=== PATIENT | male | born 1945 | race Two or more races ===

== ENCOUNTER 2016-04-29 01:13 | Emergency (ER) | payer OTHER, MEDICAID ==
[~2016-04-29] VITALS: Ht 177.8 cm; Wt 76.7 kg
[~2016-04-29 01:13] MED LIST: LISI-275 PO; METF-312 PO; PANT40TA2 PO; THIA100T30 PO
[2016-04-29] MEDS ORDERED: PANTOPRAZOLE SODIUM 40 MG/10 ML VIAL IV ONE (02:00)
[2016-04-29] MEDS ORDERED: LACTATED RINGER'S 1,000 ML IV ONE (02:00)
[2016-04-29] MEDS ORDERED: ONDANSETRON HCL 4 MG/2 ML VIAL IV ONE (02:00)
[2016-04-29 02:18] LABS: Basophils # (auto) 0 uL; Basophils % (auto) 0.4 % (0.0-2.0); DEFINITIVE VIEW TRANSMISSION; Eosinophils # (auto) 0.1 uL; Hematocrit 21.3 % (41.0-53.0); Lymphocytes # (auto) 1.2 uL; Lymphocytes % (auto) 18.7 % (10.0-50.0); Mean Corpuscular Hemoglobin 25.6 pg (28.0-32.0); Mean Corpuscular Hgb Conc. 30.8 g/dL (32.0-36.0); Mean Corpuscular Volume 83.4 fL (80.0-100.0); Mean Platelet Volume 10.5 fL (7.4-10.4); Monocytes # (auto) 0.7 uL; Neutrophils # (auto) 4.6 uL; Neutrophils % (auto) 69.9 % (37.0-80.0); Platelet Count (auto) 93 10^3/uL (140-450); Red Cell Distribution Width 17.9 % (11.6-16.0); White Blood Cell 6.6 10^3/uL (4.4-10.8)
[2016-04-29 02:28] LABS: Hemoglobin 6.6 g/dL (13.5-17.5)
[2016-04-29 02:30] LABS: Partial Thromboplastin Time 24.3 sec (22.64-33.71)
[2016-04-29] MEDS ORDERED: OCTREOTIDE ACETATE 100 MCG in SODIUM CHL 0.9% 50 ML IV ONE (02:30)
[2016-04-29] MEDS ORDERED: InsuLIN REG 1unit/0.01ml Soln (100units/ml) IV ONE ×4 (02:30→10:15)
[2016-04-29] MEDS ORDERED: OCTREOTIDE ACETATE 500 MCG/ML VL ONE (02:36)
[2016-04-29 02:37] LABS: INR 1.48 (0.9-1.15); Prothrombin Time 15.2 sec (9.37-12.3)
[2016-04-29] MEDS ORDERED: OCTREOTIDE ACETATE 100 MCG/ML VL ONE (02:37)
[2016-04-29 02:50] LABS: Albumin 1.8 g/dL (3.4-5.0); Calcium 6.9 mg/dL (8.5-10.1); Magnesium 2.4 mg/dL (1.6-2.6); Potassium 5.2 mmol/L (3.5-5.1)
[2016-04-29 02:53] LABS: Lactic Acid 6.7 mmol/L (0.4-2.0)
[2016-04-29 02:54] LABS: REFLEX LACTIC ACID YES OR NO YES
[2016-04-29 02:58] LABS: BUN/Creatinine Ratio 12.8; Total Protein 4.2 g/dL (6.4-8.2)
[2016-04-29] MEDS: OCTREOTIDE ACETATE 500 MCG in SODIUM CHL 0.9% 99 ML IV SCH ×2 (03:08→12:30)
[2016-04-29] MEDS ORDERED: SUCCINYLCHOLINE CHLORIDE 20 MG/ML 10ML VIAL IV ONE (04:03)
[2016-04-29] MEDS ORDERED: ETOMIDATE (2MG/ML) 20ML VIAL IV ONE (04:03)
[2016-04-29] MEDS ORDERED: KETAMINE HCL 50 MG/ML 10ML VIAL ONE (04:09)
[2016-04-29] MEDS ORDERED: NOREPINEPHRINE BITARTRATE 250 ML IV ONE (04:43)
[2016-04-29] MEDS ORDERED: MIDAZOLAM HCL 1MG/1ML-2 ML VIAL ONE (05:18)
[2016-04-29 05:22] LABS: Urine Bilirubin Negative (Negative); Urine Blood Negative /uL (Negative); Urine Color Yellow (Yellow); Urine Glucose 4+ mg/dL (Normal); Urine Hyaline Cast FEW /lpf (0 - 2); Urine Ketone TRACE (Negative); Urine Mucus FEW (None Seen); Urine Nitrite Negative (Negative); Urine RBC 3 /hpf (0 - 3); Urine Squamous Epithelial Cell FEW /hpf (<5); Urine Urobilinogen Normal (Negative); Urine pH 5.5 (5.0-8.0)
[2016-04-29 05:39] LABS: Hematocrit 32.4 % (41.0-53.0); Hemoglobin 10.3 g/dL (13.5-17.5)
[2016-04-29 05:40] VITALS: BP 107/62
[2016-04-29] MEDS ORDERED: MIDAZOLAM DRIP 100 mg/100mL NS 100 ML IV ONE (05:51)
[2016-04-29] MEDS ORDERED: PROMETHAZINE HCL 25 MG/ML 1ML ONE (05:55)
[2016-04-29] MEDS ORDERED: MIDAZOLAM DRIP 100 mg/100mL NS 100 ML IV SCH (06:00)
[2016-04-29] MEDS ORDERED: HETASTARCH 500 ML IV ONE ×3 (06:15→11:30)
[2016-04-29] MEDS ORDERED: CALCIUM GLUC 4.65 MEQ/10ML IV ONE (06:16)
[2016-04-29] MEDS ORDERED: ROCURONIUM 10MG/ML 10ML VIAL IV ONE (06:30)
[2016-04-29] MEDS ORDERED: ROCURONIUM BROMIDE 1,000 MG in D5W 5% 150 ML IV SCH (06:45)
[2016-04-29] MEDS ORDERED: PANTOPRAZOLE SODIUM 80 MG in SODIUM CHL 0.9% 60 ML IV ONE (07:30)
[2016-04-29] MEDS ORDERED: PROMETHAZINE HCL 25 MG/ML 1ML IV ONE (07:45)
[2016-04-29 08:05] LABS: Hematocrit 22.9 % (41.0-53.0); Hemoglobin 7.4 g/dL (13.5-17.5)
[2016-04-29] MEDS ORDERED: NOREPINEPHRINE BITARTRATE 250 ML IV SCH (08:15)
[2016-04-29] MEDS ORDERED: PROPOFOL 100 ML IV ONE (08:16)
[2016-04-29 08:20] VITALS: BP 170/70
[2016-04-29] MEDS ORDERED: PROPOFOL 100 ML IV SCH (08:40)
[2016-04-29] MEDS ORDERED: PIPERACILLIN-TAZOB 3.375GM 100 ML IV ONE ×2 (09:28→09:30)
[2016-04-29] MEDS ORDERED: CLINDAMYCIN 900MG IV 50 ML IV ONE (09:30)
[2016-04-29 09:45] LABS: Partial Thromboplastin Time 34.4 sec (22.64-33.71)
[2016-04-29 09:54] LABS: Lactic Acid 4.2 mmol/L (0.4-2.0)
[2016-04-29 09:55] LABS: Albumin 1.6 g/dL (3.4-5.0); BUN/Creatinine Ratio 19.8; Bilirubin, Total 2.5 mg/dL (0.2-1.0); Calcium 6.2 mg/dL (8.5-10.1); Total Protein 3.2 g/dL (6.4-8.2)
[2016-04-29 09:57] LABS: INR 1.75 (0.9-1.15); REFLEX LACTIC ACID YES OR NO NO
[2016-04-29 10:00] LABS: Potassium 6.4 mmol/L (3.5-5.1)
[2016-04-29] MEDS ORDERED: ALBUTEROL SULF 2.5 MG/0.5ML(0.5%) NEB SOLN NEB STA (10:01)
[2016-04-29 10:08] VITALS: BP 152/63
[2016-04-29] MEDS ORDERED: DEXTROSE (50%) 50ML SYRG IV ONE (10:15)
[2016-04-29] MEDS ORDERED: CALCIUM GLUC 4.65 MEQ/10ML 4.65 MEQ in SODIUM CHL 0.9% 50 ML IV ONE (10:15)
[2016-04-29] MEDS ORDERED: SODIUM POLYSTYRENE SULF 15GM/60ML SUSP PO ONE (10:15)
[2016-04-29] MEDS ORDERED: SODIUM BICARBONATE 8.4% INJ 50ML SYRINGE IV ONE (10:15)
[2016-04-29 11:17] VITALS: BP 152/63
[2016-04-29] MEDS ORDERED: PHENYLEPHRINE INJ 20 MG in SODIUM CHL 0.9% 250 ML IV SCH (11:35)
[2016-04-29] MEDS ORDERED: DOPamine 1600MCG/ML 250 ML IV SCH (11:35)
[2016-04-29] MEDS ORDERED: DOPamine 1600MCG/ML 250 ML IV ONE (11:37)
[2016-04-29] MEDS ORDERED: EPINEPHrine HCL 1 MG/10 ML SYRG ONE ×2 (11:51→12:02)
[2016-04-29] MEDS ORDERED: FLUMAZENIL 0.1 MG/ML INJ 10ML MDV IV ONE (11:51)
[2016-04-29] MEDS ORDERED: NALOXONE HCL 0.4 MG/ML VIAL ONE (11:51)
[2016-04-29] MEDS ORDERED: fentaNYL CITRATE 100 MCG/2 ML VL ONE (11:52)
[2016-04-29] MEDS ORDERED: diphenhdrAMINE HCL 50 MG/1 ML VL ONE (11:52)
[2016-04-29] MEDS ORDERED: SODIUM CHLORIDE LOCK 10 ML ONE (11:52)
[2016-04-29] MEDS ORDERED: MIDAZOLAM HCL 5 MG/ML-1ML VIAL ONE (11:52)
[2016-04-29] MEDS ORDERED: METOCLOPRAMIDE HCL 5MG/ml INJ 2ml VIAL ONE (12:03)
[2016-04-29 12:15] VITALS: BP 101/54
[2016-04-29] MEDS ORDERED: METOCLOPRAMIDE HCL 5MG/ml INJ 2ml VIAL IV ONE (12:15)
[2016-04-29] MEDS ORDERED: SODIUM BICARBONATE 8.4% INJ 50ML SYRINGE ONE ×2 (12:55→13:06)
[2016-04-29] MEDS ORDERED: EPINEPHrine HCL 250 ML IV SCH (12:57)
[2016-04-29 13:50] VITALS: BP 47/23
== END 2016-04-29 16:14 | disposition other institution (70) ==
LOC: ER 01:18
DX: K92.0 Hematemesis (principal); K74.60 Unspecified cirrhosis of liver; R57.9 Shock, unspecified; Z87.891 Personal history of nicotine dependence; Z79.899 Other long term (current) drug therapy; E11.9 Type 2 diabetes mellitus without complications; K21.9 Gastro-esophageal reflux disease without esophagitis
CPT/HCPCS: 31500; 36415; 36430; 36556; 36600; 71010; 74176; 80053; 81001; 82140; 82150; 82805; 82962; 83605; 83690; 83735; 85014; 85018; 85025; 85610; 85730; 86850; 86900; 86901; 86920; 87070; 87205; 94640; 96361; 96365; 96367; 96368; 96375; 96376; 99291; 99292; C9113; J0171; J0330; J0610; J1265; J1815; J2250; J2370; J2405; J2543; J2550; J2704; J2765; J3490; J7030; J7040; J7042; J7050; P9016; P9017; J7060